=== PATIENT | male | born 1965 | race Two or more races ===

== ENCOUNTER 2024-09-09 12:56 | Emergency (ER) | payer MEDICAID, OTHER ==
[~2024-09-09] VITALS: Ht 167.6 cm; Wt 80.0 kg
[2024-09-09] MEDS: ONDANSETRON HCL 4 MG/2 ML VIAL IV ONE ×2 (13:15→23:42)
[2024-09-09] MEDS: hydrALAZINE HCL 20 MG/ML VL IV ONE ×2 (13:15→22:05)
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
[2024-09-09] MEDS: MORPHINE SULFATE 4 MG/ML SYR/VIAL IV ONE ×2 (15:12→18:43)
[2024-09-09 15:28] LABS: Basophils # (auto) 0 10 ^3/uL (0-0.2); Basophils % (auto) 0.3 % (0.0-2.0); Eosinophils # (auto) 0 10 ^3/uL (0-0.8); Eosinophils % (auto) 0.1 % (0.0-7.0); Hematocrit 40.6 % (41.0-53.0); Hemoglobin 13.3 g/dL (13.5-17.5); Lymphocytes # (auto) 1.1 10 ^3/uL (0.4-5.4); Lymphocytes % (auto) 6.9 % (10.0-50.0); Mean Corpuscular Hemoglobin 30.5 pg (28.0-32.0); Mean Corpuscular Hgb Conc. 32.7 g/dL (32.0-36.0); Mean Corpuscular Volume 93.2 fL (80.0-100.0); Monocytes # (auto) 0.7 10 ^3/uL (0-1.3); Monocytes % (auto) 4.2 % (0.0-12.0); Neutrophils # (auto) 14.1 10 ^3/uL (1.6-8.6); Neutrophils % (auto) 88.5 % (37.0-80.0); Platelet Count (auto) 324 10^3/uL (140-450); Red Blood Cells 4.35 10^6/uL (4.5-5.90); Red Cell Distribution Width 14.4 % (11.8-14.3)
[2024-09-09 15:44] LABS: INR 0.96 (0.9-1.15); Partial Thromboplastin Time 25.9 SEC (24.5-34.5); Prothrombin Time 10.2 sec (9.3-11.8)
[2024-09-09] MEDS: TETANUS-DIPTH-ACEL PERTUSSIS 0.5ML SYR Tdap IM ONE (15:50)
[2024-09-09 15:51] LABS: Alanine Aminotransferase 28 U/L (7-40); Albumin 3.9 g/dL (3.2-4.8); Anion Gap 9 (5-15); Aspartate Aminotransferase 39 U/L (13-40); BUN/Creatinine Ratio 7.5 (10.0-20.0); Bilirubin, Total 0.4 mg/dL (0.2-1.0); Calcium 9.2 mg/dL (8.7-10.4); Carbon Dioxide 23 mmol/L (20-31); Chloride 104 mmol/L (98-107); Potassium 4.8 mmol/L (3.5-5.1); Total Protein 7.3 g/dL (5.7-8.2)
[2024-09-09 15:52] LABS: Alkaline Phosphatase 122 U/L (46-116); Blood Urea Nitrogen 31 mg/dL (9-23); Glucose 143 mg/dL (74-106); Sodium 136 mmol/L (136-145)
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
[2024-09-09 18:30] LABS: Urine Bacteria FEW /hpf (None Seen); Urine Blood 3+ /uL (Negative); Urine Clarity Turbid (Clear); Urine Color Light-Yellow (Yellow); Urine Mucus FEW (None Seen); Urine Protein, UAD 3+ (Negative); Urine Specific Gravity 1.021 (1.001-1.035); Urine Sperm PRESENT /hpf (None Seen); Urine Squamous Epithelial Cell FEW /hpf (<5); Urine Urobilinogen Normal (Negative); Urine WBC 5 /hpf (0 - 3); Urine pH 6.5 (5.0-9.0)
[2024-09-09 19:53] VITALS: PULSE 82; RESP 16; O2SAT 96
[2024-09-09] MEDS: HYDROmorphone HCL 2 MG/ML VL/or syr IV ONE (21:06)
[2024-09-10 00:30] VITALS: BP 162/80; PULSE 88; RESP 18; TEMP 98; O2SAT 97
--- NOTE | 2024-09-10 14:38 | ECG ---
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
== END 2024-09-10 00:50 | disposition short-term general hospital (02) ==
LOC: ER 12:56 → EDBD 12:56 → ER 09-10 00:50
DX: S26.91XA Contusion of heart, unspecified with or without hemopericardium, initial encounter (principal); S42.292A Other displaced fracture of upper end of left humerus, initial encounter for closed fracture; V53.5XXA Driver of pick-up truck or van injured in collision with car, pick-up truck or van in traffic accident, initial encounter; Y93.89 Activity, other specified; Y92.410 Unspecified street and highway as the place of occurrence of the external cause; Y99.0 Civilian activity done for income or pay
CPT/HCPCS: 29105; 36415; 71250; 73030; 73130; 80053; 81001; 83880; 84484; 85025; 85610; 85730; 90471; 90715; 93005; 96374; 96375; 99291; J0360; J1171; J2270; J2405